=== PATIENT | female | born 1990 | race African-American/Black ===

== ENCOUNTER 2017-08-18 10:41 | Day surgery (SDC) | payer BC ==
[2017-08-17 15:25] VITALS: BMI 23.6
[2017-08-18] MEDS ORDERED: CEFAZOLIN/Water 2 GM/20 ML SYRINGE ONE (11:41)
[2017-08-18] MEDS ORDERED: Lidocaine 1% (PF) 30 ML VIAL ONE (12:01)
[2017-08-18] MEDS ORDERED: Dexamethasone 20 MG/5 ML VIAL ONE (12:40)
[2017-08-18] MEDS ORDERED: Ketorolac Tromethamine 30 MG/ML VIAL ONE (12:40)
[2017-08-18] MEDS ORDERED: PROPOFOL 200 MG/20 ML VIAL ONE (12:40)
[2017-08-18] MEDS ORDERED: Lidocaine 1% PF 5 ML VIAL ONE (12:40)
[2017-08-18] MEDS ORDERED: Midazolam HCl 2 mg/2 ml Vial ONE (12:40)
[2017-08-18] MEDS ORDERED: Fentanyl 100 MCG/2 ML VIAL ONE ×3 (13:07→14:46)
[2017-08-18] MEDS ORDERED: Meperidine HCl/PF 25 MG/ML VIAL ONE (14:27)
--- NOTE | 2017-08-18 14:55 | RAD ---
LEFT FEMUR LIMITED SURVEY: Date: 08/18/17 HISTORY: Hardware removal left femur. FINDINGS/IMPRESSION: Single spot fluoroscopic intraoperative image of the distal left femur demonstrates no hardware withi n the bone. POS: JOÃO
[2017-08-18] MEDS ORDERED: HYDROmorphone 0.5 MG/0.5 ML SYRINGE ONE (15:11)
[2017-08-18] MEDS ORDERED: HYDROcodone/Acetaminophen 5/325 mg Tablet ONE ×2 (15:49→16:54)
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
== END 2017-08-18 17:10 | disposition home or self-care (01) ==
LOC: SDC 10:41
PROVIDERS: ATTEND Orthopaedic Surgery
PROC: 2W5MXYZ Removal of Other Device on Left Lower Extremity (ICD-10-PCS; principal; 2017-08-18)
DX: T84.84XA Pain due to internal orthopedic prosthetic devices, implants and grafts, initial encounter (principal); M23.8X2 Other internal derangements of left knee; Z98.890 Other specified postprocedural states
CPT/HCPCS: 76001; 96374; J1170; J2001; J2175; J2250; J3010

== ENCOUNTER 2020-02-23 12:12 | Outpatient (CLI) | payer OTHER ==
--- NOTE | 2020-02-23 14:04 | MRI ---
MRI Lower Ext Jt Lt WO Con History: Patellofemoral arthrosis Comparison: Radiograph July 2017 Findings: Exam is severely limited due to motion and susceptibility artifact. Medial meniscus: Intact Lateral meniscus: Intact ACL, PCL, MCL and LCL are intact. Extensor mechanism: Quadriceps tendon, patella and patellar tendon are intact. Severe trochlea dyspla donna. The tibial tuberosity-trochlear groove distance measures 15 mm. Cartilage: Patellofemoral compartment: Full-thickness chondral defects of the superior lateral patellar facet as well as inferior lateral patellar facet with subcortical reactive marrow change. Extensive blistering of the left superior patellar cartilage and delamination. Medial compartment: Intact Lateral compartment: Intact Bones: Numerous screw tracks with susceptibility throughout the distal femur. No acute fracture is ap preciated. Soft tissues: Small bodies within the popliteus bursa. Small joint effusion. Superolateral synovitis. Muscles: Muscle signal and bulk is normal. Impression: 1. 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 2. Intact menisci without displaced tear. 3. High-grade synovitis along with thickened medial lateral patellar plica. 4. Small 3-4 mm body within the popliteus bursa.
== END 2020-02-23 12:13 | disposition home or self-care (01) ==
LOC: TBSIIMAG 12:12
PROVIDERS: ATTEND Orthopaedic Surgery
DX: M17.10 Unilateral primary osteoarthritis, unspecified knee (principal); M22.40 Chondromalacia patellae, unspecified knee; M65.9 Synovitis and tenosynovitis, unspecified